=== PATIENT | female | born 1945 | race Two or more races ===

== ENCOUNTER 2024-05-17 15:49 | Emergency (ER) | payer MEDICAID, SELFPAY ==
[2024-05-17 15:50] VITALS: BMI 16.6
[2024-05-17 15:59] VITALS: BP 174/71; PULSE 74; RESP 18; TEMP 36.7; O2SAT 98
--- NOTE | 2024-05-17 16:02 | EKG_ITS ---
[facility] Test Date: 2024-05-17 Pat Name: JESSENIA KHALIL Department: Room: - Gender: Female Manager Summer: : 1945 Requested By: Gary Carrasco (VELASQUEZ) Order Number: [id number] Reading MD: Gary Carrasco (INFORMATICA ARCHITECT) Measurements Intervals [place] Rate: 78 P: 74 VA: 149 QRS: 57 QRSD: 80 T: 60 QT: 351 QTc: 400 Interpretive Statements SINUS RHYTHM LOW QRS VOLTAGE IN PRECORDIAL LEADS [QRS DEFLECTION < 1.0 mV IN CHEST LEADS] POSSIBLE RIGHT VENTRICULAR CONDUCTION DELAY [RSR (QR) IN V1/V2] No previous ECG available for comparison /store/S0/[id number].pdf
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
[2024-05-17 16:54] LABS: Basophils % (Auto) 1 % (0-2.5); Eosinophils # (Auto) 0.7 Thou/mm3 (0.0-0.5); Eosinophils % (Auto) 9 % (0-10); Hematocrit 33.3 % (36.0-46.0); Hemoglobin 10.9 g/dL (12.0-16.0); Immature Granulocytes % (Auto) 0 % (0-0); Immature Granulocytes Auto 0.02 Thou/mm3 (0.00-0.00); Lymphocytes # (Auto) 1.7 Thou/mm3 (1.0-4.8); Lymphocytes % (Auto) 22 % (10-50); Mean Corpuscular HGB Conc 32.7 g/dl (31.0-37.0); Mean Corpuscular Hemoglobin 29.6 pg (25.0-35.0); Mean Corpuscular Volume 91 fL (80-100); Monocytes # (Auto) 0.4 Thou/mm3 (0.0-0.8); Monocytes % (Auto) 5 % (0-12); Neutrophils # (Auto) 4.9 Thou/mm3 (1.8-7.7); Neutrophils % (Auto) 63 % (37-80); Nucleated Red Blood Cell % 0 /100 WBC (0); Platelet Count 140 Thou/mm3 (140-440); RDW Standard Deviation 44.5 fL (36.4-46.3); Red Blood Count 3.68 Miln/mm3 (4.00-5.20); White Blood Count 7.7 Thou/mm3 (3.6-11.0)
[2024-05-17 17:00] VITALS: BP 140/73; PULSE 72; RESP 16; O2SAT 98
[2024-05-17 17:03] LABS: INR 1.1 (0.9-1.3); Partial Thromboplastin Time 27.1 Seconds (22.0-36.0); Prothrombin Time 11.5 Seconds (9.0-12.2)
[2024-05-17 17:06] LABS: Alanine Aminotransferase 68 U/L (10-49); Albumin, Serum 4.1 gm/dL (3.4-4.8); Albumin/Globulin Ratio 1.2 (1.2-2.2); Alkaline Phosphatase 70 U/L (46-116); Anion Gap 7 (7-16); Aspartate Amino Transferase 84 U/L (0-34); BUN/Creatinine Ratio 30 Ratio (12-20); Bilirubin,Total 0.4 mg/dL (0.3-1.2); Blood Urea Nitrogen 30 mg/dL (9-23); Calcium 9.2 mg/dL (8.3-10.6); Calcium (Corrected) 9.2 mg/dL (8.5-10.1); Carbon Dioxide 21.9 mMol/L (20.0-31.0); Chloride 110 mMol/L (98-107); Estimated Creatinine Clearance 27.8 mL/min (>60); Globulin 3.4 gm/dL (2.3-3.5); Glucose 101 mg/dL (74-106); Osmolality,Calculated 283 (275-295); Potassium 4.6 mMol/L (3.4-5.1); Sodium 139 mMol/L (136-145); Total Protein 7.5 gm/dL (5.7-8.2); eGFR 57 See Note
[2024-05-17] MEDS: ONDANSETRON INJ 2 MG/ML INJ 2 ML 4 MG IV (17:13)
[2024-05-17] MEDS: MORPHINE SULF INJ 10 MG/ML VIAL 2 MG IVP (17:13)
[2024-05-17] MEDS: SODIUM CHLORIDE 0.9% 1000 ML 1,000 ML 999 ML IV (18:15)
--- NOTE | 2024-05-17 18:31 | PC.NURSE ---
Called Ct, spoke with Al states he will come to er shortly to take patient for exam.
[2024-05-17 19:53] VITALS: BP 144/73; PULSE 82; RESP 16; TEMP 36.9; O2SAT 97
[2024-05-17] MEDS: oxyCODONE/APAP 5/325 TABLET 1 TAB PO (19:55)
== END 2024-05-17 20:11 | disposition home or self-care (01) ==
PROVIDERS: Nurse Practitioner Primary Care; Emergency Provider Emergency Medicine; PCP Nurse Practitioner Family
DX: S02.2XXA Fracture of nasal bones, initial encounter for closed fracture (principal); S22.20XA Unspecified fracture of sternum, initial encounter for closed fracture; S00.83XA Contusion of other part of head, initial encounter; R94.31 Abnormal electrocardiogram [ECG] [EKG]; V89.2XXA Person injured in unspecified motor-vehicle accident, traffic, initial encounter; I48.91 Unspecified atrial fibrillation; I25.10 Atherosclerotic heart disease of native coronary artery without angina pectoris; I50.9 Heart failure, unspecified; I11.0 Hypertensive heart disease with heart failure
CPT/HCPCS: 36415; 70450; 70486; 71260; 74177; 80053; 85025; 85610; 85730; 93005; 96361; 96374; 96375; 99285; A4649; J2270; J2405; J7030; Q9967; A9270

== ENCOUNTER 2024-11-03 09:15 | Outpatient (RCR) | payer MEDICAID, SELFPAY ==
--- NOTE | 2024-11-02 09:00 | XR_ITS ---
Examination: Nuclear medicine thyroid scan and uptake Date and time: November 02, 2024, 1540 hours INDICATIONS: Diagnosis nontoxic single thyroid nodule TECHNIQUE AND FINDINGS: Oral administration 2089 uCi I-123 6 and 24 uptake values recorded as well as thyroid scans anterior both obliques 6 hour uptake 15% normal range 6-24% 24 hour uptake 31.5% normal range 10-36% Hyperfunctioning mid right thyroid nodule IMPRESSION: Hyperfunctioning mid right thyroid nodule, suggest correlation with thyroid sonography
== END 2024-11-08 23:59 | disposition home or self-care (01) ==
LOC: SNUC 09:15
PROVIDERS: PCP Obstetrics & Gynecology; Referring Provider Obstetrics & Gynecology; Visit Provider Obstetrics & Gynecology
DX: E04.1 Nontoxic single thyroid nodule (principal)
CPT/HCPCS: 78013; A9516